=== PATIENT | female | born 1940 | race Two or more races ===

== ENCOUNTER → 2017-01-09 | Outpatient (CLI) | payer OTHER | END | disposition home or self-care (01) | LOC: NUC 12:46 | DX: R10.11 Right upper quadrant pain (principal) | CPT/HCPCS: 78227; A9510; J2805 ==

== ENCOUNTER 2017-03-13 10:44 | Day surgery (SDC) | payer OTHER ==
[~2017-03-13] VITALS: Ht 158.8 cm; Wt 69.9 kg
[~2017-03-13 10:44] MED LIST: BACTRIM,SEPT1 TABLE1 PO; GABAPENTIN300 MG PO; LEVO-T100 MCG PO; METFORMIN HCL1000 MG PO; METHADONE H5 MG/5 ML PO; OMEPRAZOLE20 MG PO; SELENIUM100 MICROG PO; TRAMADOL HCL50 MG PO; VITAMIN B-6100 MG PO; VITAMIN B12 PO; VITAMIN D31000 UNIT PO; VITAMIN E400 UNIT PO
[2017-03-13 11:30] LABS: POINT-OF-CARE METER ID UU14174212
[2017-03-13 11:35] VITALS: BP 142/72
[2017-03-13] MEDS ORDERED: TRAMADOL HCL50 MG PO (13:25)
[2017-03-13] MEDS ORDERED: COLACE100 MG PO (13:25)
[2017-03-13 15:00] VITALS: BP 132/65
[2017-03-13 16:20] VITALS: BP 130/65
== END 2017-03-13 17:00 | disposition home or self-care (01) ==
LOC: SDC 10:44
PROVIDERS: Surgery
PROC: 0FT44ZZ Resection of Gallbladder, Percutaneous Endoscopic Approach (ICD-10-PCS; principal; 2017-03-13)
DX: K80.10 Calculus of gallbladder with chronic cholecystitis without obstruction (principal); K82.4 Cholesterolosis of gallbladder; E11.40 Type 2 diabetes mellitus with diabetic neuropathy, unspecified; I10 Essential (primary) hypertension; K21.9 Gastro-esophageal reflux disease without esophagitis; I25.2 Old myocardial infarction; E03.9 Hypothyroidism, unspecified; Z79.84 Long term (current) use of oral hypoglycemic drugs; Z80.0 Family history of malignant neoplasm of digestive organs; Z82.49 Family history of ischemic heart disease and other diseases of the circulatory system; Z83.3 Family history of diabetes mellitus; Z84.1 Family history of disorders of kidney and ureter; Z87.891 Personal history of nicotine dependence
CPT/HCPCS: 82948; 88304; J0131; J0330; J1170; J2405; J2710; J2765; J3010